=== PATIENT | female | born 1925 | race Caucasian/White ===

== ENCOUNTER 2017-04-02 18:37 | Inpatient (IN) | payer OTHER, BC ==
[~2017-04-02] VITALS: Ht 160 cm; Wt 65.8 kg
--- NOTE | 2017-04-02 18:57 | NUR ---
PT IS A 89 YEAR OLD FEMALE, PRESENTS TO ED VIA [facility], WITH C/O WEAKNESS AND NEAR SYNCOPY APRROX 30 MINS ENGINE MONITOR. PER MEDIC, PER DAUGHTER PT WAS SITTING IN CHAIR THEN SUDDENLY GOT PALE AND SWEATY AND WAS NEAR SYNCOPAL. PTS DAUGHTER CALLED 911. UPON ARRIVAL ON SCENE, BS WAS 100. UPON ARRIVAL TO ED, PT SPEECH IS CLEAR AND APPROPRIATE, PT A/O X4. BREATHING IS EVEN AND UNLABORED, NO S/S OF RESPRAITORY DISTRESS. PTS SKIN IS WARM,D RY AND INTACT. PT DOES NOT APPEAR PALE TO ME. PER DAUGHTER, PT IS PALE TO BASELINE SKIN COLOR, AND PT HAS HAD INCREASED CONFUSION. PT HOOKED TO FULL PEDIATRICIAN/MEDICAL DOCTOR. PT LUNG SOUNDS ARE CLEAR BILATERALLY. PT AWAITING MSE.
--- NOTE | 2017-04-02 19:02 | NUR ---
PTS SKIN IS INTACT.
--- NOTE | 2017-04-02 19:13 | NUR ---
REPORT GIVEN TO MARILYN OLSEN, SHE WILL ASSUME CARE PRIMARY RN.
--- NOTE | 2017-04-02 19:39 | NUR ---
XRAY AT BEDSIDE.
--- NOTE | 2017-04-02 19:45 | NUR ---
BIOTECHNICIAN AT BEDSIDE FOR BLOOD DRAW.
--- NOTE | 2017-04-02 19:48 | NUR ---
EKG IN PROGRESS AT BEDSIDE.
--- NOTE | 2017-04-02 20:14 | NUR ---
ASSISTED PT TO BEDSIDE COMMODE.
[2017-04-02 20:17] LABS: BASOPHIL % 0.2 % (0-2); PLATELET COUNT 266 x10^3mcL (130-400); RED CELL DISTRIBUTION WIDTH 12.8 % (11.5-14.5)
[2017-04-02 20:28] LABS: CALCIUM 9.4 mg/dL (8.5-10.1); CARBON DIOXIDE 29.6 mmol/L (21-32); CHLORIDE SERUM 97 mmol/L (98-107); CREATININE SERUM 1.3 mg/dL (0.6-1.0); GLUCOSE SERUM 123 mg/dL (74-106); POTASSIUM SERUM 4.5 mmol/L (3.5-5.1); SODIUM SERUM 135 mmol/L (136-145)
[2017-04-02 20:36] LABS: FREE T4 1.18 ng/dL (0.76-1.46); T4(THYROXINE) 8.9 ug/dL (4.7-13.3)
[2017-04-02 20:38] LABS: CK-MB < 0.5 ng/mL (0-3.6); CREATINE KINASE 14 U/L (26-192); T3 TOTAL 1.2 ng/mL
[2017-04-02 20:41] LABS: ALBUMIN 3.3 g/dL (3.4-5.0); ALKALINE PHOSPHATASE 129 U/L (46-116); ALT/SGPT 14 U/L (14-59); AST/SGOT 14 U/L (15-37); BILIRUBIN TOTAL 0.44 mg/dL (0.20-1.00); C REACTIVE PROTEIN 0.3 mg/dL (<=0.9); TOTAL PROTEIN, SERUM 7.2 g/dL (6.4-8.2)
[2017-04-02 20:42] LABS: microscopic required? YES; urine erythrocyte TRACE (NEGATIVE)
[2017-04-02 20:58] LABS: ERYTHROCYTE SED RATE 31 mm/hr (0-30)
--- NOTE | 2017-04-02 21:40 | NUR ---
PT TAKEN TO CT VIA [facility].
--- NOTE | 2017-04-02 22:19 | NUR ---
ASSISTED PT TO BEDSIDE COMMODE.
--- NOTE | 2017-04-02 23:04 | NUR ---
REPORT GIVEN TO RN JEREMY TO ASSUME CARE.
--- NOTE | 2017-04-02 23:35 | NUR ---
RECEIVED PT FROM ED VIA [facility], CAME IN DUE TO COLD, CLAMMY SKIN AND NEAR SYNCOPE. AAOX4. DENIES HEADACHE/DIZZINESS. ABLE TO FOLLOW COMMANDS. NO SOB NOTED, LUNG SOUNDS DIMINISHED ON AUSCULTATION. ON 2LPM/NC, O2 SAT=96%. 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 DENIES ABDOMINAL DISCOMFORT. IV SITE PATENT AND INTACT. SIDE RAILS UPX2. CALL LIGHT ON REACH. BEDSIDE COMMODE PROVIDED. DAUGHTER AT BEDSIDE. ENDORSED
[2017-04-02 23:41] VITALS: BP 146/72
[2017-04-02 23:47] VITALS: Ht 160 cm; Wt 65.8 kg
[2017-04-03] MEDS ORDERED: CARVEDILOL6.25 M1 PO (00:10)
--- NOTE | 2017-04-03 00:24 | NUR ---
Pt ASSISTED TO RESTROOM, AMBULATES SLOW W/ STEADY GAIT. ORTHOVITAL SIGNS TAKEN AND RECORDED. Pt ON ROOM AIR WITH SATURATIONS OF 94%. NO SOB REPORTED. IV FLUIDS STARTED. CALL LIGHT WITHIN REACH, WILL CONTINUE TO MONITOR.
[2017-04-03] MEDS ORDERED: SAVAYSA60 MG PO (01:08)
[2017-04-03] MEDS ORDERED: HCTZ/SPIRONOLAC1 TAB PO (01:10)
[2017-04-03] MEDS ORDERED: ALDACTONE25 MG PO (01:14)
[2017-04-03] MEDS ORDERED: HYDROCHLOROTHIA25 MG PO (01:15)
[2017-04-03 02:39] VITALS: BP 117/55
[2017-04-03 03:01] LABS: CHOLESTEROL/HDL RATIO 3.2; MAGNESIUM 1.6 mg/dL (1.8-2.4); PHOSPHOROUS 3.8 mg/dL (2.5-4.9)
--- NOTE | 2017-04-03 04:09 | NUR ---
Pt RESTING COMFORTABLY. WILL CONTINUE TO MONITOR.
[2017-04-03 05:15] VITALS: BP 149/72
--- NOTE | 2017-04-03 06:08 | NUR ---
NO SIGNIFICANT CHANGES NOTED. VOIDS FREELY. WILL CONTINUE TO MONITOR.
[2017-04-03 06:12] LABS: CALCIUM 9.6 mg/dL (8.5-10.1); CARBON DIOXIDE 29.8 mmol/L (21-32); CHLORIDE SERUM 101 mmol/L (98-107); CREATININE SERUM 0.9 mg/dL (0.6-1.0); GLUCOSE SERUM 105 mg/dL (74-106); POTASSIUM SERUM 4.2 mmol/L (3.5-5.1); SODIUM SERUM 137 mmol/L (136-145)
[2017-04-03 06:44] LABS: BASOPHIL % 0.8 % (0-2); PLATELET COUNT 243 x10^3mcL (130-400); RED CELL DISTRIBUTION WIDTH 12.8 % (11.5-14.5)
--- NOTE | 2017-04-03 07:59 | NUR ---
PT RECEIVED DURING CHANGE OF SHIFT, A/XO4, SR WITH 1ST DEGREE AVB AND BBB, DENIES CHEST PAIN, TELE 20, PULSES PRESENT, LUNGS DIM ON 2L NC, DENIES SOB, BREATHING EVEN AND UNLABORED, BOWEL SOUNDS ACTIVE, LBM 04/02/17, DENIES N/V/D, BSC, ABLE TO VOID, GENERALIZED WEAKNESS, UTILIZES WALKER AT HOME, SKIN WARM DRY INTACT, DENIES ALL PAIN, IV TO LAC INFUSING NS AT 100ML/HR, CALM AND COOPERATIVE, CALL LIGHT WITHIN REACH, WILL CONTINUE TO MONITOR.
--- NOTE | 2017-04-03 09:19 | NUR ---
PT DENIES SOB, DENIES PAIN, MED EDUCATION GIVEN, BM REPORTED BROWN SLIGHTLY SOFT, CALL LIGHT WITHIN REACH, DAUGHTER AT BEDSIDE, WILL CONTINUE TO MONITOR.
[2017-04-03 09:42] VITALS: BP 118/50
--- NOTE | 2017-04-03 10:07 | NUR ---
PT AND DAUGHTER INFORMED THAT HOME MEDICATION HAS BEEN TAKEN TO PHARMACY TO BE VERIFIED, NO COMPLAINTS AT THIS TIME, CALL LIGHT WITHIN REACH, WILL CONTINUE TO MONITOR.
--- NOTE | 2017-04-03 11:28 | NUR ---
PT ASLEEP BUT AROUSABLE, NO INDICATION OF PAIN, BREATHING EVEN AND UNLABORED, CALL LIGHT WITHIN REACH, WILL CONTINUE TO MONITOR.
--- NOTE | 2017-04-03 12:23 | NUR ---
PT ASLEEP, NO INDICATION OF PAIN, BREATHING EVEN AND UNLABORED, DAUGHTER AT BEDSIDE, CALL LIGHT WITHIN REACH, WILL CONTINUE TO MONITOR.
--- NOTE | 2017-04-03 13:57 | NUR ---
DAUGHTER AT BEDSIDE, NO COMPLAINTS AT THIS TIME, CALL LIGHT WITHIN REACH, WILL CONTINUE TO MONITOR.
--- NOTE | 2017-04-03 14:16 | NUR ---
PT AND DAUGHTER WATCHING TV, NO COMPLAINTS AT THIS TIME, CALL LIGHT WITHIN REACH, WILL CONTINUE TO MONITOR.
[2017-04-03 14:39] VITALS: BP 121/53
--- NOTE | 2017-04-03 15:20 | NUR ---
PT SITTING UP IN CHAIR, NO COMPLAINTS AT THIS TIME, CALL LIGHT WITHIN REACH, WILL CONTINUE TO MONITOR.
--- NOTE | 2017-04-03 16:46 | NUR ---
PT REFUSED TO GIVE URINE FOR OSMALALITY AND LYTES, NO COMPLAINTS AT THIS TIME, PT EXPRESSES WISH TO GO HOME BUT IS AGREEING TO STAY, CALL LIGHT WITHIN REACH, DAUGHTER AT BEDSIDE, WILL CONTINUE TO MONITOR.
--- NOTE | 2017-04-03 18:44 | NUR ---
PT DENIES SOB, DENIES PAIN, MAGNESIUM STILL INFUSING, DENIES DISCOMFORT AT IV SITE, CALL LIGHT WITHIN REACH, WILL ENDORSE TO NEXT SHIFT.
[2017-04-03 19:20] VITALS: BP 136/64
--- NOTE | 2017-04-03 19:20 | NUR ---
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
--- NOTE | 2017-04-04 04:41 | NUR ---
PT SLEPT WELL ALL NIGHT.DENIES HEADACHE OR DIZZINESS.NO SYNCOPAL EPISODES NOTED.ASSISTED TO BR AT ALL TIMES.NO FALLS/INJURY NOTED.BEDALARM ON AT ALL TIMES.WILL CONTINUE TO MONITOR.
[2017-04-04 05:22] VITALS: BP 137/60
[2017-04-04 06:04] LABS: BASOPHIL % 0.8 % (0-2); PLATELET COUNT 224 x10^3mcL (130-400); RED CELL DISTRIBUTION WIDTH 12.9 % (11.5-14.5)
[2017-04-04 06:17] LABS: CALCIUM 9.2 mg/dL (8.5-10.1); CARBON DIOXIDE 29.6 mmol/L (21-32); CHLORIDE SERUM 102 mmol/L (98-107); CREATININE SERUM 0.8 mg/dL (0.6-1.0); GLUCOSE SERUM 101 mg/dL (74-106); MAGNESIUM 1.9 mg/dL (1.8-2.4); POTASSIUM SERUM 4.2 mmol/L (3.5-5.1); SODIUM SERUM 138 mmol/L (136-145)
--- NOTE | 2017-04-04 07:25 | NUR ---
PT SEEN SITTING AT BED SIDE. PT NO COMPLAIN OF DIZZINESS AND PAIN AT THIS TIME. PT BREATHING ON RA, EVEN, UNLABORED. IV SITE PATENT, INTACT. IVF INFUSING WELL.
[2017-04-04 07:30] VITALS: BP 130/58
[2017-04-04] MEDS ORDERED: LAC PO (09:21)
[2017-04-04] MEDS ORDERED: BACTRIM DS1 TAB PO (09:21)
[2017-04-04 09:40] VITALS: BP 133/67
[2017-04-04 13:05] VITALS: BP 106/46
[2017-04-04 17:46] VITALS: BP 141/60
--- NOTE | 2017-04-04 19:43 | NUR ---
PT RESTING ON BED. NO COMPLAIN OF PAIN AND DIZZINESS. PT BREATHING ON RA, EVEN, UNLABORED. IV SITE SALINE LOCK PER ORDER.
--- NOTE | 2017-04-04 19:48 | NUR ---
SHIFT REASSESSMENT DONE,PATIENT ALERT AND ORIENTED,NOT IN RESP DISTRESS.BLIND L EYE,[place]OLSK[place] L EAR,DEF R EAR.NEEDS ANTICIPATED.BREATHING EASY AT THIS TIME.GEN WEAKNESS,ASSIST.USES WALKER AT HOME.HEPLOCK RAC.TELE 20 SR.SKIN INTACT.SCD INTACT LOWER EXT.DENIES PAIN.CALL LIGHT IN REACH.
[2017-04-04 21:26] VITALS: BP 136/54
--- NOTE | 2017-04-04 23:30 | NUR ---
PATIENT ASSISTED TO BATHROOM,VOIDING WELL.FALL PRECAUTION R/T DX SYNCOPE.PATIENT SLEEPING COMFORTABLY.CALL LIGHT IN REACH.
--- NOTE | 2017-04-05 04:18 | NUR ---
PATIENT HAS ORDER OF IV TO HEPLOCK BUT ONLY ON THE ADDITIONAL ORDER.WILL REMIND DR LE TO DC IVF.
[2017-04-05 05:13] VITALS: BP 117/43
--- NOTE | 2017-04-05 05:52 | NUR ---
PATIENT SLEEPING COMFORTABLY.HEPLOCK INTACT.WILL ENDORSE TO NEXT SHIFT.
--- NOTE | 2017-04-05 07:15 | NUR ---
RECEIVED PT. IN BED A/A/O X3. NO SOB, NO N/V NOTED. DENIES ANY PAIN AT THIS TIME. IV H/L NOTED TO R AC. SCD TO BLE MAINTAINED. BED IN LOW POS., CALL LIGHT WITHIN REACH. SIDE RAILS UP X3. PT. DENIES ANY DIZZINESS OR HEADACHE.
[2017-04-05 08:00] VITALS: BP 125/61
--- NOTE | 2017-04-05 08:30 | NUR ---
D/C HOME INSTRUCTIONS GIVEN TO PT. AND PT.'S DAUGHTER (STEPH ONEIL) WITH VERBALIZATION OF UNDERSTANDING. IV H/L TO R AC REMOVED. TELE. MONITOR #20 REMOVED AND RETURNED TO TELE. MONITOR STATION.
--- NOTE | 2017-04-05 09:07 | NUR ---
DR. RESTREPO, THE RESIDENTS, CHARGE NURSE, AND ATTENDING NURSE AT BEDSIDE. CAREPLAN DISCUSSED WITH PT. AND PT.'S DAUGHTER. ALL QUESTIONS ANSWERED.
--- NOTE | 2017-04-05 09:10 | NUR ---
PT. IS BEING DISCHARGED IN STABLE CONDITION VIA WHEELCHAIR. ALL BELONGINGS SENT HOME WITH PT. UPON DISCHARGE.
--- NOTE | 2017-04-05 14:15 | NUR ---
PT NOTES TIME [id number] CLEARED BY RN FOR P.T. TX. ATTEMPTED TO SEE PATIENT FOR TX, BUT DECLINED D/T PATIENT BEING D/C FROM HOSPITAL AT THIS TIME. EDUCATED PATIENT/DAUGHTER ON SAFETY & HEP W/ G UNDERSTANDING. APPRECIATIVE OF CARE. PRIMARY PHYSICAL THERAPIST AWARE. PVE
== END 2017-04-05 09:09 | disposition home or self-care (01) | DRG 689 ==
LOC: ED 18:37 → DU 22:50
PROVIDERS: Specialist; ADMIT Family Medicine
DX: N39.0 Urinary tract infection, site not specified (principal); G93.41 Metabolic encephalopathy; I50.43 Acute on chronic combined systolic (congestive) and diastolic (congestive) heart failure; N17.0 Acute kidney failure with tubular necrosis; E87.1 Hypo-osmolality and hyponatremia; E44.1 Mild protein-calorie malnutrition; E86.0 Dehydration; I11.0 Hypertensive heart disease with heart failure; I16.0 Hypertensive urgency; I48.2 Chronic atrial fibrillation; R73.03 Prediabetes; E03.9 Hypothyroidism, unspecified; Z68.29 Body mass index [BMI] 29.0-29.9, adult; Z96.651 Presence of right artificial knee joint
CPT/HCPCS: 36600; 83880; 84439; 97110-GP; 97116-GP; 97530-GP; J0696; J3475; J7030; Q0092